=== PATIENT | male | born 1955 | race Caucasian/White ===

== ENCOUNTER 2022-12-19 11:43 | Outpatient (CLI) | payer MEDICARE ==
--- NOTE | 2022-12-19 15:24 | CT Report ---
PROCEDURE: Low Dose Lung Cancer Screen INDICATIONS: HISTORY OF SMOKING TECHNIQUE: A CT scan of the chest was performed. Intravenous contrast media was not administered. Images were re corded and evaluated at appropriate window settings. Reformats: axial MIP of the chest, coronal and s agittal. For radiation dose reduction, the following was used: automated exposure control, adjustment of mA and/or kV according to patient size. COMPARISON: Chest x-ray 10/22/2022 FINDINGS: Image quality: Excellent. Prior cancer history: Unsure. Lungs and pleura: No pleural effusions. No pneumothorax. 4 mm medial right upper lobe nodule (3/128) . There are a few additional tiny 1 to 2 mm micronodules. Left lower lobe calcified granuloma. Mild u pper lobe predominant paraseptal and centrilobular emphysematous changes. Mediastinum: Heart size is normal. No pericardial effusion. No large vessel abnormality. Atherosclero tic vascular calcifications. No mediastinal adenopathy by size criteria. Severe multivessel coronary artery calcifications. Chest wall and lower neck: Calcified thyroid nodule in the right posterior thyroid lobe measuring 9 m m. No axillary or supraclavicular adenopathy by size. Mild gynecomastia. Bones: No aggressive osseous abnormality. Old left posterior rib fracture. Upper Abdomen: Cholelithiasis. Nonobstructing renal stones versus vascular calcifications measuring u p to 4 mm. No hydronephrosis within the visualized kidneys. The spleen is absent. A 2 cm nodule withi n the left upper quadrant in the region of the spleen may represent a splenule or residual spleen, co rrelate with history of trauma or surgery. IMPRESSION: 1.Pulmonary nodules measuring 4 mm or less. 2.Mild upper lobe predominant paraseptal and centrilobular emphysematous changes. 3.Severe multivessel coronary artery calcifications. 4.Cholelithiasis. 5.Nonobstructing bilateral renal stones versus vascular calcifications measuring up to 4 mm. 6.The spleen is absent with a 2 cm nodule in the left upper quadrant which may represent a splenule o r residual spleen. Correlate with history of trauma or surgery. Lung RAD: 2 - Benign. Recommendation: Continue annual screening in 12 Months with LDCT Non-Lung Significant Findings: Coronary Arterial Calcification - Moderate or Severe. Consider cardiol ogy referral. Reviewed by: Marcus Jerez MD on 12/19/2022 3:23 PM PDT Approved by: Marcus Jerez MD on 12/19/2022 3:23 PM PDT Station ID: [id number]
== END 2022-12-19 11:44 | disposition home or self-care (01) ==
LOC: DI 11:43
PROVIDERS: ATTEND Student in an Organized Health Care Education/Training Program
DX: Z12.2 Encounter for screening for malignant neoplasm of respiratory organs (principal); Z87.891 Personal history of nicotine dependence; R91.8 Other nonspecific abnormal finding of lung field; J43.2 Centrilobular emphysema; I25.10 Atherosclerotic heart disease of native coronary artery without angina pectoris; K80.20 Calculus of gallbladder without cholecystitis without obstruction; N20.0 Calculus of kidney; Z90.81 Acquired absence of spleen

== ENCOUNTER 2023-12-19 11:13 | Outpatient (CLI) | payer MEDICARE ==
--- NOTE | 2023-12-19 16:32 | CT Report ---
PROCEDURE: Lung Cancer Screen INDICATIONS: SMOKER TECHNIQUE: A CT scan of the chest was performed. Intravenous contrast media was not administered. Images were re corded and evaluated at appropriate window settings. Reformats: axial MIP of the chest, coronal and s agittal. For radiation dose reduction, the following was used: automated exposure control, adjustment of mA and/or kV according to patient size. COMPARISON: 12/19/2022. FINDINGS: Image quality: Excellent. Prior cancer history: Unsure. Lungs and pleura: Previously described 4 mm posterior medial right upper lobe nodule remains unchanged series 4 image 4 7. Additional tiny 1 to 2 mm micronodules are also unchanged. Calcified granuloma is again seen in le ft lower lobe. Mild centrilobular emphysema is again seen. No pleural effusions. No pneumothorax. No suspicious pul monary nodules which require follow up. Mediastinum: Heart size is normal. No pericardial effusion. No large vessel abnormality. No mediastin al adenopathy by size criteria. Chest wall and lower neck: Thyroid is unremarkable. No axillary or supraclavicular adenopathy by size . Bones: No aggressive osseous abnormality. Upper Abdomen: Cholelithiasis is again seen without CT evidence of acute cholecystitis. Absence of sp rolando with small splenule is seen. Bilateral nonobstructing renal calculi versus vascular calcificatio n are again seen. No hydronephrosis. IMPRESSION: Lung RAD: 2 - Benign. Recommendation: Continue annual screening in 12 Months with LDCT Non-Lung Significant Findings: Moderate to severe coronary artery calcifications. Reviewed by: Maldonado Reddy MD on 12/19/2023 4:30 PM PDT Approved by: Maldonado Reddy MD on 12/19/2023 4:30 PM PDT Station ID: [id number]
== END 2023-12-19 11:14 | disposition home or self-care (01) ==
LOC: DI 11:13
PROVIDERS: ATTEND Student in an Organized Health Care Education/Training Program
DX: Z12.2 Encounter for screening for malignant neoplasm of respiratory organs (principal); J43.2 Centrilobular emphysema; I25.10 Atherosclerotic heart disease of native coronary artery without angina pectoris; F17.210 Nicotine dependence, cigarettes, uncomplicated